=== PATIENT | female | born 1995 | race Two or more races ===

== ENCOUNTER 2018-04-27 21:46 | Outpatient (CLI) | payer SELFPAY ==
[2018-04-27 22:57] LABS: BASOPHILS # (AUTO) 0.03 x10^3/uL (0-0.1); BASOPHILS % (AUTO) 0 % (0-1); EOSINOPHILS # (AUTO) 0.11 x10^3/uL (0-0.4); EOSINOPHILS % (AUTO) 1 % (1-7); LYMPHOCYTES # (AUTO) 1.93 x10^3/uL (1-3.4); LYMPHOCYTES % (AUTO) 23 % (22-44); MD NO; MEAN CORPUSCULAR HEMOGLOBIN 33.5 pg (27.0-34.8); MEAN CORPUSCULAR HGB CONC 34.5 g/dL (32.4-35.8); MEAN CORPUSCULAR VOLUME 97.2 fL (80-100); MEAN PLATELET VOLUME 8.4 fL (7.4-10.4); MONOCYTES % (AUTO) 7 % (2-9); NEUTROPHILS # (AUTO) 5.74 x10^3/uL (1.8-6.8); NEUTROPHILS % (AUTO) 68 % (42-75); PLATELET COUNT 243 x10^3/uL (130-400); RED BLOOD COUNT 3.38 x10^6/uL (3.82-5.3)
[2018-04-27 23:18] LABS: MICROSCOPIC AUTO
[2018-04-27 23:26] LABS: AMPHETAMINE SCREEN, URINE Negative (Negative); BARBITURATE SCREEN, URINE Negative (Negative); BENZODIAZEPINE SCREEN, URINE Negative (Negative); CANNABINOID SCREEN, URINE Negative (Negative); COCAINE SCREEN, URINE Negative (Negative); METHADONE SCREEN, URINE Negative (Negative); OPIATE SCREEN, URINE Negative (Negative)
== END 2018-04-28 01:50 | disposition home or self-care (01) ==
LOC: LDOP 21:46
PROVIDERS: ATTEND Obstetrics & Gynecology
DX: O62.9 Abnormality of forces of labor, unspecified (principal); Z3A.29 29 weeks gestation of pregnancy
CPT/HCPCS: 36415; 59025; 76805; 80307; 81001; 85025; 85460; 86592; 86762; 86850; 86900; 87340; 87806; 99201; G0463; G0475

== ENCOUNTER 2018-07-14 18:56 | Inpatient (IN) | payer MEDICAID ==
[~2018-07-14] VITALS: Ht 162.6 cm; Wt 64.0 kg
[2018-07-14] MEDS ORDERED: OXYTOCIN 30U/ 0.9% NaCL 500ML 500 ML IV ONE (19:53)
[2018-07-14] MEDS ORDERED: OXYTOCIN 30U/ 0.9% NaCL 500ML 500 ML IV PRN (19:53)
[2018-07-14] MEDS ORDERED: SODIUM CITRATE/CITRIC ACID 30 ML UDC PO PRN (20:00)
[2018-07-14] MEDS ORDERED: ONDANSETRON 2MG/ML, 2ML IVPush PRN (20:00)
[2018-07-14] MEDS ORDERED: FENTANYL PF 100 MCG/2ML IV PRN (20:00)
[2018-07-14] MEDS ORDERED: MISOPROSTOL 25 MCG TABLET VG PRN (20:00)
[2018-07-14] MEDS ORDERED: MISOPROSTOL 25 MCG TABLET ONE (20:20)
[2018-07-14 20:24] LABS: BASOPHILS # (AUTO) 0.02 x10^3/uL (0-0.1); BASOPHILS % (AUTO) 0 % (0-1); EOSINOPHILS # (AUTO) 0.05 x10^3/uL (0-0.4); EOSINOPHILS % (AUTO) 1 % (1-7); LYMPHOCYTES # (AUTO) 2.22 x10^3/uL (1-3.4); LYMPHOCYTES % (AUTO) 34 % (22-44); MD NO; MEAN CORPUSCULAR HEMOGLOBIN 34.1 pg (27.0-34.8); MEAN CORPUSCULAR HGB CONC 34.7 g/dL (32.4-35.8); MEAN CORPUSCULAR VOLUME 98.5 fL (80-100); MEAN PLATELET VOLUME 8.9 fL (7.4-10.4); MONOCYTES # (AUTO) 0.62 x10^3/uL (0.2-0.8); MONOCYTES % (AUTO) 10 % (2-9); NEUTROPHILS # (AUTO) 3.61 x10^3/uL (1.8-6.8); NEUTROPHILS % (AUTO) 55 % (42-75); PLATELET COUNT 214 x10^3/uL (130-400); RED BLOOD COUNT 3.74 x10^6/uL (3.82-5.3); RED CELL DISTRIBUTION WIDTH 13.1 % (9.6-15.2)
[2018-07-14] MEDS ORDERED: PLEASE ENTER HEIGHT AND WEIGHT MC SCH (20:30)
[2018-07-14] MEDS ORDERED: OXYTOCIN 30U/ 0.9% NaCL 500ML 500 ML ONE (20:45)
[2018-07-14] MEDS ORDERED: NEWBORN KIT ONE (20:45)
[2018-07-14 22:57] LABS: AMPHETAMINE SCREEN, URINE Negative (Negative); BARBITURATE SCREEN, URINE Negative (Negative); BENZODIAZEPINE SCREEN, URINE Negative (Negative); CANNABINOID SCREEN, URINE Negative (Negative); COCAINE SCREEN, URINE Negative (Negative); METHADONE SCREEN, URINE Negative (Negative); OPIATE SCREEN, URINE Negative (Negative)
[2018-07-15] MEDS ORDERED: MISOPROSTOL 25 MCG TABLET ONE (00:31)
[2018-07-15] MEDS: LACTATED RINGERS 1,000 ML IV SCH ×3 (05:16→14:30)
[2018-07-15] MEDS ORDERED: FENTANYL PF 100 MCG/2ML ONE ×2 (11:03→13:20)
[2018-07-15] MEDS: FENTANYL PF 100 MCG/2ML IVPush PRN ×2 (11:16→13:30)
[2018-07-15] MEDS ORDERED: FENTANYL/BUPIV./NS/PF 250 ML EPIDCONT SCH (13:11)
[2018-07-15] MEDS ORDERED: FENTANYL PF 500 MCG, BUPIVACAINE/PF 0.5%, 30ML 62.5 ML in SODIUM CHLORIDE 0.9% 177.5 ML EPIDCONT SCH (13:30)
[2018-07-15] MEDS ORDERED: BUPIVACAINE 0.25% ONE (14:30)
[2018-07-15] MEDS ORDERED: D5%-LACTATED RINGERS 1,000 ML IV SCH (18:18)
[2018-07-15] MEDS ORDERED: OXYTOCIN 30U/ 0.9% NaCL 500ML 500 ML ONE (22:04)
[2018-07-15 22:45] VITALS: BP 94/53
[2018-07-16] MEDS ORDERED: ONDANSETRON 2MG/ML, 2ML IV PRN (00:30)
[2018-07-16] MEDS ORDERED: BISACODYL 10 MG SUPP PR PRN (00:30)
[2018-07-16] MEDS ORDERED: GLYCERIN ADULT SUPP PR PRN (00:30)
[2018-07-16] MEDS ORDERED: DOCUSATE 100 MG CAPSULE PO PRN (00:30)
[2018-07-16] MEDS ORDERED: OXYcodone/APAP 5/325MG TABLET PO PRN ×2 (00:30)
[2018-07-16] MEDS ORDERED: MAGNESIUM HYDROXIDE 8%, 30ML UDC PO PRN (00:30)
[2018-07-16] MEDS ORDERED: CALCIUM CARBONATE 500 MG TAB.CHEW PO PRN (00:30)
[2018-07-16] MEDS ORDERED: ACETAMINOPHEN 325 MG TABLET PO PRN ×3 (00:30)
[2018-07-16] MEDS ORDERED: IBUPROFEN 800 MG TABLET PO PRN (00:30)
[2018-07-16] MEDS ORDERED: DIPH,PERTUSS(ACELL),TET VAC/PF NC IM-VACC PRN (00:30)
[2018-07-16] MEDS ORDERED: METOCLOPRAMIDE 5 MG/ML, 2ML IV PRN (00:30)
[2018-07-16] MEDS: OXYTOCIN 30U/ 0.9% NaCL 500ML 500 ML IV SCH ×3 (00:35→16:41)
[2018-07-16] MEDS: LACTATED RINGERS 1,000 ML IV SCH ×2 (00:37→17:30)
[2018-07-16 01:30] VITALS: BP 102/61
[2018-07-16] MEDS ORDERED: MISOPROSTOL 200 MCG TABLET PR PRN (02:30)
[2018-07-16] MEDS ORDERED: METHYLERGONOVINE 0.2 MG/ML IM PRN (02:30)
[2018-07-16 04:30] VITALS: BP 106/68
[2018-07-16 04:59] LABS: MEAN CORPUSCULAR HEMOGLOBIN 33.4 pg (27.0-34.8); MEAN CORPUSCULAR HGB CONC 34.5 g/dL (32.4-35.8); MEAN PLATELET VOLUME 8.7 fL (7.4-10.4); PLATELET COUNT 195 x10^3/uL (130-400); RED BLOOD COUNT 3.51 x10^6/uL (3.82-5.3); RED CELL DISTRIBUTION WIDTH 13.6 % (9.6-15.2)
[2018-07-16 05:38] LABS: MD YES
[2018-07-16 05:40] LABS: BAND#(MANUAL) 0.42 x10^3/uL; BANDS%(MANUAL) 3 % (0-7); LYMPH#(MANUAL) 1.83 x10^3/uL (1-3.4); LYMPHS% (MANUAL) 13 % (22-44); MONOS#(MANUAL) 0.14 x10^3/uL (0.3-2.7); MONOS% (MANUAL) 1 % (2-9); SEGS% (MANUAL) 83 % (42-75)
[2018-07-16 05:42] LABS: <PLATELET ESTIMATE> ADEQUATE; <PLT MORPHOLOGY> NORMAL PLT MORPH; <RBC MORPHOLOGY> NORMAL
[2018-07-16 07:31] VITALS: BP 107/70
[2018-07-16 11:58] VITALS: BP 108/63
[2018-07-16] MEDS: PRENATAL VIT/IRON/FA 1 EACH TABLET PO SCH (12:02)
[2018-07-16] MEDS: IBUPROFEN 600 MG TABLET PO PRN (12:02)
[2018-07-16 16:15] VITALS: BP 106/64
[2018-07-16 22:40] VITALS: BP 113/72
[2018-07-17 07:56] VITALS: BP 124/78
[2018-07-17] MEDS: PRENATAL VIT/IRON/FA 1 EACH TABLET PO SCH (09:47)
[2018-07-17] MEDS: IBUPROFEN 600 MG TABLET PO PRN (09:48)
[2018-07-17] MEDS ORDERED: IBUP-1222 PO (12:12)
== END 2018-07-17 20:30 | disposition home or self-care (01) | DRG 775 ==
LOC: LDOP 18:56 → LDIP 20:13 → 2NW 07-15 22:18
PROVIDERS: ADMIT Obstetrics & Gynecology; ATTEND Obstetrics & Gynecology
PROC: 10E0XZZ Delivery of Products of Conception, External Approach (ICD-10-PCS; principal; 2018-07-14)
PROC: 3E0R3BZ Introduction of Anesthetic Agent into Spinal Canal, Percutaneous Approach (ICD-10-PCS; 2018-07-14)
PROC: 00HU33Z Insertion of Infusion Device into Spinal Canal, Percutaneous Approach (ICD-10-PCS; 2018-07-14)
PROC: 3E033VJ Introduction of Other Hormone into Peripheral Vein, Percutaneous Approach (ICD-10-PCS; 2018-07-14)
DX: O48.0 Post-term pregnancy (principal); Z37.0 Single live birth; Z3A.41 41 weeks gestation of pregnancy
CPT/HCPCS: 36415; J7121; 80307; 82803; 85025; 86850; 86900; 90715; J3010; J3490; J2590; J7050; J7120